=== PATIENT | male | born 1960 | race American Indian/Alaskan Native ===

== ENCOUNTER 2020-08-09 11:12 | Emergency (ER) | payer SELFPAY ==
[2020-08-09] MEDS ORDERED: ACETAMINOPHEN 325 MG TAB PO ONE (11:27)
--- NOTE | 2020-08-09 11:34 | Emergency Department Report ---
- General Chief Complaint: Upper Respiratory Infection Stated Complaint: NAUSEA/COLD SX/SORETHROAT Time Seen by Provider: 08/09/20 11:27 Source: patient Mode of arrival: Ambulatory Limitations: No Limitations - History of Present Illness Initial Comments: Patient is a 59-year-old male with complaints of a productive cough for a week. He states he has mucus production. He has associated chills, generalized body aches, chest discomfort only after frequent coughing, fatigue, chest congestion. He states he had one episode of posttussive emesis today. He states otherwise he has not been vomiting and is able to tolerate p.o. intake. He states he has been taking cold medication [id number] without much relief. He denies any shortness of breath or known fever. Past medical history of hypertension. No allergies to medications. Patient is a non-smoker. He denies any sick contacts or recent travel. - Related Data Previous Rx's Medication Instructions Recorded Last Taken Type Amoxicillin [Trimox CAP] 1,000 mg PO Q8H #60 capsule 12/03/14 Unknown Rx Fluticasone [Flonase] 1 spray NS QDAY #1 bottle 12/03/14 Unknown Rx Ibuprofen [Motrin 800 MG tab] 800 mg PO Q8H PRN #20 tablet 12/03/14 Unknown Rx Albuterol Sulfate [Proventil Hfa] 6.7 gm IH TID PRN #1 hfa.aer.ad 08/09/20 Unknown Rx Azithromycin [Zithromax TAB] 250 mg PO QDAY 5 Days #6 tablet 08/09/20 Unknown Rx Prednisone [predniSONE 10 mg 10 mg PO .TAPER #1 tab.ds.pk 08/09/20 Unknown Rx (6-Day Pack, 21 Tabs)] guaiFENesin/DEXTROMETHORPHAN 1 each PO Q8HR PRN #14 capsule 08/09/20 Unknown Rx [Coricidin Hbp Chest Danny-Cough] Allergies Allergy/AdvReac Type Severity Reaction Status Date / Time No Known Allergies Allergy Verified 08/09/20 11:13 ED Review of Systems ROS: Stated complaint: NAUSEA/COLD SX/SORETHROAT Other details as noted in HPI Comment: All other systems reviewed and negative ED Past Medical Hx - Past Medical History Previous Medical History?: Yes Hx Hypertension: Yes - Surgical History Past Surgical History?: No - Social History Smoking Status: Never Smoker Substance Use Type: None - Medications Home Medications: Home Medications Medication Instructions Recorded Confirmed Last Taken Type Amoxicillin [Trimox CAP] 1,000 mg PO Q8H #60 capsule 12/03/14 Unknown Rx Fluticasone [Flonase] 1 spray NS QDAY #1 bottle 12/03/14 Unknown Rx Ibuprofen [Motrin 800 MG tab] 800 mg PO Q8H PRN #20 tablet 12/03/14 Unknown Rx Albuterol Sulfate [Proventil Hfa] 6.7 gm IH TID PRN #1 hfa.aer.ad 08/09/20 Unknown Rx Azithromycin [Zithromax TAB] 250 mg PO QDAY 5 Days #6 tablet 08/09/20 Unknown Rx Prednisone [predniSONE 10 mg 10 mg PO .TAPER #1 tab.ds.pk 08/09/20 Unknown Rx (6-Day Pack, 21 Tabs)] guaiFENesin/DEXTROMETHORPHAN 1 each PO Q8HR PRN #14 capsule 08/09/20 Unknown Rx [Coricidin Hbp Chest Danny-Cough] ED Physical Exam - General Limitations: No Limitations General appearance: alert, in no apparent distress - Head Head exam: Present: atraumatic, normocephalic - Eye Eye exam: Present: normal appearance - ENT ENT exam: Present: mucous membranes moist - Respiratory Respiratory exam: Present: normal lung sounds bilaterally, rhonchi (bilaterally). Absent: respiratory distress, wheezes, rales, stridor, chest wall tenderness, accessory muscle use, decreased breath sounds, prolonged expiratory - Cardiovascular Cardiovascular Exam: Present: regular rate, normal rhythm, normal heart sounds. Absent: systolic murmur, diastolic murmur, rubs, gallop - Neurological Exam Neurological exam: Present: alert, oriented X3 - Psychiatric Psychiatric exam: Present: normal affect, normal mood - Skin Skin exam: Present: warm, dry, intact ED Course Vital Signs 08/09/20 08/09/20 11:20 12:33 Temperature 100.2 F H 98.7 F Pulse Rate 59 L 62 Respiratory 20 14 Rate Blood Pressure 160/86 Blood Pressure 190/98 [Left] O2 Sat by Pulse 98 98 Oximetry ED Medical Decision Making - Lab Data Vital Signs 08/09/20 08/09/20 11:20 12:33 Temperature 100.2 F H 98.7 F Pulse Rate 59 L 62 Respiratory 20 14 Rate Blood Pressure 160/86 Blood Pressure 190/98 [Left] O2 Sat by Pulse 98 98 Oximetry - Radiology Data Radiology results: report reviewed Ordering Physician: MAKAYLA PRINCE Date of Service: 08/09/20 Procedure(s): XR chest routine 2V Accession Number(s): [id number] cc: MAKAYLA PRINCE Fluoro Time In Minutes: CHEST 2 VIEWS INDICATION: productive cough x 1 week. COMPARISON: None. FINDINGS: Support devices: None. Heart: Within normal limits. Lungs/Pleura: No acute air space or interstitial disease. No significant pleural effusion. IMPRESSION: No acute findings. Signer Name: Daniel Medina MD Signed: 08/09/2020 12:01 PM Workstation Name: [id number] Transcribed By: AMEENA Dictated By: Daniel Medina MD Electronically Authenticated By: Daniel Medina MD Signed Date/Time: 08/09/20 120 DD/ 00 TD/TT: - Medical Decision Making Patient is a 59-year-old male with complaints of a productive cough for a week. He states he has mucus production. He has associated chills, generalized body aches, chest discomfort only after frequent coughing, fatigue, chest congestion. He states he had one episode of posttussive emesis today. He states otherwise he has not been vomiting and is able to tolerate p.o. intake. He states he has been taking cold medication [id number] without much relief. He denies any shortness of breath or known fever. Past medical history of hypertension. No allergies to medications. Patient is a non-smoker. He denies any sick contacts or recent travel. Vitals with low-grade fever, otherwise stable. On exam patient has rhonchi bilaterally, no wheezing, no rales, no respiratory distress, no accessory muscle use. CXR: IMPRESSION: No acute findings. discussed all results with patient and answered questions. Symptoms likely related to acute bronchitis. Patient is presenting with the symptoms during COVID-19 pandemic, discussed COVID-19 with patient, discuss strict return precautions, discussed outpatient testing, discussed self quarantine. Patient does not meet hospital criteria for COVID-19 admission or for COVID-19 hospital testing. Patient given prescription for corcidin, azithromycin, prednisone, albuterol inhaler. Advised patient Please take medication as prescribed. P lease increase your fluid intake over the next several days. May take Tylenol as needed for fever or body aches. Follow-up with a primary care doctor for reexamination. Return to emergency room immediately for any new or worsening symptoms including but not limited to difficulty breathing, shortness of breath, severe chest pain, unable to tolerate by mouth intake, etc. Please self quarantine for 10 days from the onset of your symptoms. Please do not go out in public. If you are around others at home please wear a mask. If you need to cough or sneeze please do so in a napkin and immediately throw it away and immediately wash your hands. Wash your hands frequently. Wipe everything down. Recommend for you to get COVID-19 testing, may have this done at primary care doctor, health department, [facility] testing center. - Differential Diagnosis PNA, URI, acute bronchitis, reactive airway, viral syndrome, COVID19 Critical care attestation.: If time is entered above; I have spent that time in minutes in the direct care of this critically ill patient, excluding procedure time. ED Disposition Clinical Impression: Acute bronchitis Qualifiers: Bronchitis organism: unspecified organism Qualified Code(s): J20.9 - Acute bronchitis, unspecified Disposition: DC-01 TO HOME OR SELFCARE Is pt being admited?: No Does the pt Need Aspirin: No Condition: Stable Instructions: Acute Bronchitis, Adult, [id number], Acute Bronchitis (ED) Additional Instructions: Please take medication as prescribed. Please increase your fluid intake over the next several days. May take Tylenol as needed for fever or body aches. Follow-up with a primary care doctor for reexamination. Return to emergency room immediately for any new or worsening symptoms including but not limited to difficulty breathing, shortness of breath, severe chest pain, unable to tolerate by mouth intake, etc. Please self quarantine for 10 days from the onset of your symptoms. Please do not go out in public. If you are around others at home please wear a mask. If you need to cough or sneeze please do so in a napki n and immediately throw it away and immediately wash your hands. Wash your hands frequently. Wipe everything down. Recommend for you to get COVID-19 testing, may have this done at primary care doctor, health department, [facility] testing center. Your chest x-ray is normal, no signs of pneumonia at this time Prescriptions: guaiFENesin/DEXTROMETHORPHAN [Coricidin Hbp Chest Danny-Cough] 1 each PO Q8HR PRN #14 capsule PRN Reason: cough/congestion Prednisone [predniSONE 10 mg (6-Day Pack, 21 Tabs)] 10 mg PO .TAPER #1 tab.ds.pk Albuterol Sulfate [Proventil Hfa] 6.7 gm IH TID PRN #1 hfa.aer.ad PRN Reason: Shortness Of Breath Azithromycin [Zithromax TAB] 250 mg PO QDAY 5 Days #6 tablet Referrals: PRIMARY CAREMD [Primary Care Provider] - 2-3 Days MARY CHUNG MD [Staff Physician] - 2-3 Days [facility] [Provider Group] - 2-3 Days [facility] [Outside] - 2-3 Days [facility], [LAB/CONTRACT] - 2-3 Days Time of Disposition: 12:16 Print Language: TANZANIAN
--- NOTE | 2020-08-09 12:06 | XRay Report ---
CHEST 2 VIEWS INDICATION: productive cough x 1 week. COMPARISON: None. FINDINGS: Support devices: None. Heart: Within normal limits. Lungs/Pleura: No acute air space or interstitial disease. No significant pleural effusion. IMPRESSION: No acute findings. Signer Name: Daniel Medina MD Signed: 08/09/2020 12:01 PM Workstation Name: [id number]
[2020-08-09 12:34] VITALS: BP 190/98
== END 2020-08-09 12:34 | disposition home or self-care (01) ==
LOC: ED 11:12
DX: J20.9 Acute bronchitis, unspecified (principal); I10 Essential (primary) hypertension; Z79.899 Other long term (current) drug therapy
CPT/HCPCS: 71046